=== PATIENT | male | born 1950 | race Caucasian/White ===

== ENCOUNTER 2016-07-15 09:31 | Inpatient (IN) | payer OTHER ==
[2016-05-19 11:36] VITALS: BMI 29.0
[2016-05-19 11:54] VITALS: BMI 29.0
--- NOTE | 2016-05-19 12:11 | PAT Medication Instructions ---
Service Date May 19, 2016. Current Home Medication List Amlodipine (Norvasc), 5 MG PO QAM Medication Instructions For Your Scheduled Surgery - Take the following medications the morning of surgery with a sip of water: Amlodipine (Norvasc), 5 MG PO QAM If you have any questions please call us at [phone] or [phone] ( Alexandra) or [phone]
[2016-05-19 12:41] LABS: BASO % 0.5 %; BASO ABS # 0.03 K/uL (0-0.2); COMPLETE YES; EOS % 2.2 %; HEMATOCRIT 47.2 % (42-52); IG% 0.2 %; LYMPH % 27.9 %; LYMPH ABS # 1.76 K/uL (1.2-3.4); MEAN CELL VOLUME 90.9 fL (80-100); MEAN CORPUSCULAR HEMOGLOBIN 31.4 pg (25-34); MEAN CORPUSCULAR HGB CONC 34.5 g/dl (32-36); MEAN PLATELET VOLUME 10.8 fL (7.4-10.4); MONO % 5.2 %; PLATELET COUNT 273 K/uL (130-400); RED BLOOD COUNT 5.19 M/uL (4.7-6.1); WHITE BLOOD COUNT 6.31 K/uL (4.8-10.8)
[2016-05-19 12:47] LABS: URINE APPEARANCE CLEAR (CLEAR); URINE BILIRUBIN NEG (NEG); URINE COLOR YELLOW; URINE NITRITE NEG (NEG); UROBILINOGEN NEG (NEG)
--- NOTE | 2016-05-19 12:50 | DIAGNOSTIC IMAGING REPORT ---
CHEST 2 VIEWS ROUTINE CLINICAL HISTORY: Preoperative chest COMPARISON STUDY: No previous studies for comparison. FINDINGS: The cardiac and mediastinal contours are normal. There is no evidence of focal pulmonary consolidation. There is no evidence of failure. No pleural effusions are visualized.[ A 9 mm rounded opacity at the right lung base, is felt to represent a nipple shadow. IMPRESSION: No active disease in the chest. Electronically signed by: Lawrence Pearce M.D. 05/19/2016 12:48 PM Dictated Date/Time: 05/19/2016 12:47 PM
[2016-05-19 12:54] LABS: MANUAL MICROSCOPIC REQUIRED? NO; REVIEW REQ? NO
[2016-05-19 13:09] LABS: BUN/CREATININE RATIO 12.2 (10-20); CALCIUM 9.2 mg/dl (8.5-10.1); CREATININE 1.1 mg/dl (0.60-1.40); POTASSIUM 3.5 mmol/L (3.5-5.1)
[2016-06-23 15:23] VITALS: BMI 29.0
[2016-07-15] VITALS (7 sets, daily range): BP systolic 131–172; BP diastolic 80–112; PULSE 71–89; TEMP 36.4–36.8; O2SAT 95–99; Ht 180.3 cm; Wt 96.9 kg
[~2016-07-15] VITALS: Ht 180.3 cm; Wt 96.9 kg
[~2016-07-15 09:31] MED LIST: AMLO-110 PO; CEFAZOLIN 2000 MG/60 ML D5W IV SCH; CeleBREX 200 MG CAP PO SCH; LACTATED RINGER'S 1000ML 1,000 ML IV SCH; OXYMETAZOLINE HCL 0.05% NA SPR 15 ML BTL SCH; PREGABALIN 75 MG CAP PO SCH
--- NOTE | 2016-07-15 12:19 | History and Physical ---
History & Physical Date Jul 15, 2016. Chief Complaint LBP and bilateral LE numbness History of Present Illness The patient is a 65 year old male with complaints of above who reports progressive worsening of symptoms. He has a lumbar laminectomy L3-S1 done in 2012 with partial initial improvement but had residual mild numbness in feet. He has noticed some longstanding slight L ankle weakness as well. His symptoms have deteriorated more recently and his back pain has precluded any of his usual activity or work. His quality of life was severely curtailed and he desires surgery. He was deemed low risk by cardiology for the procedure. Past Medical/Surgical History HTN High lipids lumbar surgery hernia repair tonsillectomy per neuropathy Additional History Hepatic Disease: No Endocrine Disorder: No Kidney Disease: No Hypertension: Yes Heart Disease: No Bleeding Tendencies: No Infectious Diseases: No Allergies Coded Allergies: No Known Allergies (Unverified , 07/15/16) Home Medications Scheduled Amlodipine (Norvasc), 5 MG PO QAM Physical Examination Skin: warm/dry, no rash Eyes: normal inspection, sclerae normal ENT: normal ENT inspection Head: normocephalic, atraumatic Neck: supple, trachea midline Respiratory/Chest: lungs clear, no respiratory distress Cardiovascular: regular rate, rhythm Back: normal inspection, + pertinent finding (midline scar) Extremities: normal inspection, normal range of motion Neurologic/Psych: no motor/sensory deficits (except L ankle DF weakness 3+/5, slight sensory disturbance to lt tch bila feet) Diagnosis recurrent lumbar stenosis/facet djd/DDD L3-S1 Plan of Treatment Revision laminectomy and instrumented PSF L3-S1
[2016-07-15] MEDS ORDERED: THROMBIN 5000 UNITS KIT ONE (12:22)
[2016-07-15] MEDS ORDERED: BACITRACIN 50000 UNIT VIAL ONE (12:22)
[2016-07-15] MEDS ORDERED: BUPIVACAINE/EPINEPHRINE 0.5% MPF 1:200,000 30 ML VIAL ONE (12:22)
[2016-07-15] MEDS ORDERED: THROMBIN FOR SOLN 20000 UNIT KIT ONE ×3 (12:22→13:25)
[2016-07-15] MEDS ORDERED: HEPARIN SOD (PORCINE) 1000 UNIT/ML 10 ML VIAL ONE (12:22)
[2016-07-15] MEDS ORDERED: FENTANYL CITRATE INJ 50 MCG/1 ML 2 ML VIAL ONE ×3 (12:25→14:22)
[2016-07-15] MEDS ORDERED: MIDAZOLAM HCL 1 MG/ML 2ML VIAL ONE (12:25)
[2016-07-15] MEDS ORDERED: HYDROmorphone INJ 2 MG/ML SYR/VIAL IV PRN (12:30)
[2016-07-15] MEDS ORDERED: ATROPINE SULFATE 0.1 MG/ML 5ML SYR IV PRN (12:30)
[2016-07-15] MEDS ORDERED: LABETALOL HCL IV 5 MG/ML 20ML IV PRN (12:30)
[2016-07-15] MEDS ORDERED: ONDANSETRON INJ 2 MG/ML 2 ML VIAL IV PRN ×2 (12:30→14:30)
[2016-07-15] MEDS ORDERED: HYDROmorphone INJ 2 MG/ML SYR/VIAL ONE ×2 (13:02→14:22)
[2016-07-15] MEDS ORDERED: FLOSEAL HEMOSTATIC MATRIX 10ML TOP ONE (14:19)
[2016-07-15] MEDS ORDERED: ONDANSETRON INJ 2 MG/ML 2 ML VIAL ONE (14:23)
[2016-07-15] MEDS ORDERED: PROPOFOL IV EMULSION 10 MG/ML 20 ML VIAL IV ONE (14:23)
[2016-07-15] MEDS ORDERED: GLYCOPYRROLATE INJ 0.2 MG/ML VIAL ONE (14:23)
[2016-07-15] MEDS ORDERED: DEXAMETHASONE SOD INJ 4 MG/ML VIAL ONE (14:23)
[2016-07-15] MEDS ORDERED: NEOSTIGMINE METHYLSULFATE 1 MG/ML 10ML VIAL ONE (14:23)
[2016-07-15] MEDS ORDERED: EpHEDrine SULFATE 50MG/5ML SYR ONE (14:23)
[2016-07-15] MEDS ORDERED: ROCURONIUM BROMIDE 10 MG/ML 5 ML VIAL ONE (14:23)
[2016-07-15] MEDS ORDERED: KETOROLAC TROMETHAMINE 30 MG/ML VIAL ONE (14:23)
[2016-07-15] MEDS ORDERED: LIDOCAINE HCL 2% 2 ML VIAL (20MG/ML) ONE (14:23)
[2016-07-15] MEDS ORDERED: SODIUM CHLORIDE 0.9% 1000ML 1,000 ML IV SCH (14:29)
--- NOTE | 2016-07-15 14:29 | [facility] Post Operative Brief Note ---
Immediate Operative Summary Operative Date Jul 15, 2016. Pre-Operative Diagnosis recurrent lumbar stenosis/facet degenerative joint disease/degenerative disc disease L3-S1, previous lumbar laminectomy L3-S1 Post-Operative Diagnosis same as pre-operative Procedure(s) Performed L3-L4 Revision Decompression; L3-S1 Posterior Lumbar Instrumented Fusion; use of Infuse, Autograft and Arteriocyte Surgeon Dr. Jose Almanza Solar Energy Sales Specialist Surgeon(s) Ricky Palm PA-C Estimated Blood Loss 150ml Findings dict Specimens none per surgeon
[2016-07-15] MEDS ORDERED: ALUMINUM/MAGNESIUM SUSP 30 ML UDC PO PRN (14:30)
[2016-07-15] MEDS ORDERED: LORAZEPAM 0.5 MG TAB PO PRN (14:30)
[2016-07-15] MEDS ORDERED: ACETAMINOPHEN IV 100 ML IV PRN (14:30)
[2016-07-15] MEDS ORDERED: PROMETHAZINE HCL INJ 12.5 MG in SODIUM CHLORIDE 0.9% 50ML 50 ML IV PRN (14:30)
[2016-07-15] MEDS ORDERED: MAGNESIUM HYDROXIDE SUSP 30 ML UDC PO PRN (14:30)
[2016-07-15] MEDS ORDERED: METOCLOPRAMIDE HCL INJ 5 MG/ML 2 ML VIAL IV PRN (14:30)
[2016-07-15] MEDS ORDERED: SOD PHOSPHATE/SOD BIPHOSPHATE ENEMA 132 ML BTL PR PRN (14:30)
[2016-07-15] MEDS ORDERED: FAMOTIDINE 20 MG TAB PO PRN (14:30)
[2016-07-15] MEDS ORDERED: BISACODYL 10 MG SUPP PR PRN (14:30)
[2016-07-15] MEDS ORDERED: MoRPHine SULFATE 1 MG/ML 50 ML PCA CASS IV PRN (14:30)
[2016-07-15] MEDS ORDERED: NALOXONE HCL 0.4 MG/1 ML VIAL/CARP IV PRN ×2 (14:30)
[2016-07-15] MEDS ORDERED: LORAZEPAM INJ 0.5 MG in SYRINGE 0 ML IV PRN (14:30)
--- NOTE | 2016-07-15 14:43 | DIAGNOSTIC IMAGING REPORT ---
INTRAOPERATIVE RADIOGRAPHS CLINICAL HISTORY: L3-S1 spinal fusion. Fluoroscopy time: 14 seconds. FINDINGS: 2 spot fluoroscopic views of the lumbar spine are presented. There are changes from laminectomy and posterior fusion identified from L3 -S1. Interpedicular screws are present at all levels, seen only only on the left at L4 and only on the right at L5. The orthopedic hardware appears intact. IMPRESSION: Intraoperative images from L3 -S1 spinal fusion as above. Electronically signed by: Wilbur Roa M.D. 07/15/2016 2:41 PM Dictated Date/Time: 07/15/2016 2:40 PM
[2016-07-15] MEDS ORDERED: MoRPHine SULFATE 1 MG/ML 50 ML PCA CASS ONE (14:49)
--- NOTE | 2016-07-15 15:16 | Anesthesiology Progress Note ---
Anesthesia Post Op Note Date & Time Jul 15, 2016 at 15:15 Vital Signs Vital Signs Past 12 Hours Date Time Temp Pulse Resp B/P Pulse Ox O2 Delivery O2 Flow Rate FiO2 07/15/16 15:11 80 16 07/15/16 15:11 80 16 99 07/15/16 15:10 137/92 07/15/16 15:06 83 19 07/15/16 15:06 84 19 97 07/15/16 15:05 132/89 07/15/16 15:01 80 12 07/15/16 15:01 80 12 98 07/15/16 15:00 138/98 07/15/16 14:56 74 16 07/15/16 14:56 73 16 100 07/15/16 14:55 139/93 07/15/16 14:53 85 16 07/15/16 14:53 86 16 100 07/15/16 14:50 136/99 07/15/16 14:48 87 13 99 07/15/16 14:48 88 13 07/15/16 14:45 168/104 07/15/16 14:43 103 15 07/15/16 14:43 102 15 99 07/15/16 14:40 146/104 07/15/16 14:38 93 149/94 98 07/15/16 14:38 93 07/15/16 14:38 36.9 95 16 149/94 96 Mask 10 07/15/16 10:14 95 Room Air 07/15/16 10:12 36.8 82 18 172/112 168/112 Notes Mental Status: alert / awake / arousable, participated in evaluation Pt Amnestic to Procedure: Yes Nausea / Vomiting: adequately controlled Pain: adequately controlled Airway Patency, RR, SpO2: stable & adequate BP & HR: stable & adequate Hydration State: stable & adequate Anesthetic Complications: no major complications apparent
[2016-07-15] MEDS: SODIUM CHLORIDE 0.9% 1000ML 1,000 ML IV SCH (18:06)
[2016-07-15] MEDS: DEXAMETHASONE INJ 6 MG in SYRINGE 0 ML IV SCH (18:07)
[2016-07-15] MEDS ORDERED: HYDROmorphone INJ 1 MG/ML SYR IV PRN (18:30)
[2016-07-15] MEDS: DOCUSATE SODIUM/SENNA 50/8.6MG TAB PO SCH (20:50)
[2016-07-15] MEDS: CEFAZOLIN IV 2,000 MG in DEXTROSE 5% 50ML 50 ML IV SCH (20:50)
[2016-07-16] MEDS: DEXAMETHASONE INJ 6 MG in SYRINGE 0 ML IV SCH ×2 (01:42→09:29)
[2016-07-16 03:31] VITALS: BP 141/90; PULSE 68; TEMP 36.4; O2SAT 96
[2016-07-16] MEDS: SODIUM CHLORIDE 0.9% 1000ML 1,000 ML IV SCH (03:35)
[2016-07-16] MEDS: CEFAZOLIN IV 2,000 MG in DEXTROSE 5% 50ML 50 ML IV SCH (05:33)
[2016-07-16] MEDS ORDERED: DC PCA SCH (06:00)
[2016-07-16] MEDS ORDERED: HYDROmorphone INJ 1 MG/ML SYR IV PRN (06:00)
[2016-07-16] MEDS ORDERED: NURSING DECISION MEDICATION ORDER SCH (06:00)
[2016-07-16] MEDS ORDERED: HYDROmorphone INJ 0.5 MG/0.5 ML SYR IV PRN (06:00)
[2016-07-16] MEDS ORDERED: OXYCODONE HCL IR 5 MG TAB (IMMEDIATE RELEASE) PO PRN (06:00)
[2016-07-16 06:07] LABS: COMPLETE YES; HEMATOCRIT 42.2 % (42-52); IG% 0.2 %; LYMPH % 6.4 %; MEAN CELL VOLUME 90.9 fL (80-100); MEAN CORPUSCULAR HEMOGLOBIN 31.3 pg (25-34); MEAN CORPUSCULAR HGB CONC 34.4 g/dl (32-36); MEAN PLATELET VOLUME 10.6 fL (7.4-10.4); MONO % 1.7 %; NEUT % 91.7 %; PLATELET COUNT 242 K/uL (130-400); RED BLOOD COUNT 4.64 M/uL (4.7-6.1); WHITE BLOOD COUNT 11.02 K/uL (4.8-10.8)
[2016-07-16 07:00] LABS: BUN/CREATININE RATIO 22.7 (10-20); CALCIUM 8.7 mg/dl (8.5-10.1); CREATININE 0.95 mg/dl (0.60-1.40); POTASSIUM 4.1 mmol/L (3.5-5.1)
[2016-07-16 07:35] VITALS: BP 139/95; PULSE 78; TEMP 36.6; O2SAT 97
--- NOTE | 2016-07-16 08:04 | Anesthesiology Progress Note ---
Anesthesia Post Op Note Date & Time Jul 16, 2016 at 08:03 Vital Signs Pain Intensity: 0.0 Vital Signs Past 12 Hours Date Time Temp Pulse Resp B/P Pulse Ox O2 Delivery O2 Flow Rate FiO2 07/16/16 07:35 36.6 78 16 139/95 97 Room Air 07/16/16 03:31 36.4 68 18 141/90 96 Room Air 07/15/16 23:40 36.4 75 18 144/92 96 Room Air Notes Mental Status: alert / awake / arousable, participated in evaluation Pt Amnestic to Procedure: Yes Nausea / Vomiting: adequately controlled Pain: adequately controlled Airway Patency, RR, SpO2: stable & adequate BP & HR: stable & adequate Hydration State: stable & adequate Anesthetic Complications: no major complications apparent
[2016-07-16] MEDS ORDERED: RXC5 PO (09:16)
--- NOTE | 2016-07-16 09:16 | Orthopedic Progress Note ---
Orthopedic Progress Note Date of Service Jul 16, 2016. Subjective Post OP Day: 1 Reports: feeling well, pain controlled w PO medications, Denies: SOB, calf pain , chest pain, complaints, light headedness, nausea / vomiting, using REFUND CLERK Objective calves soft nontender, N/V intact, dressing C/D/I, A&O x3, hemovac drainage Date Time Temp Pulse Resp B/P Pulse Ox O2 Delivery O2 Flow Rate FiO2 07/16/16 07:35 36.6 78 16 139/95 97 Room Air 07/16/16 03:31 36.4 68 18 141/90 96 Room Air 07/15/16 23:40 36.4 75 18 144/92 96 Room Air 07/15/16 19:30 Nasal Cannula 2.0 07/15/16 19:22 36.5 71 16 144/94 95 Room Air 07/15/16 17:47 36.5 89 16 153/91 98 Nasal Cannula 2.0 07/15/16 17:00 36.5 84 16 156/80 99 Nasal Cannula 4.0 07/15/16 15:45 36.4 82 16 131/87 99 Nasal Cannula 4.0 07/15/16 15:45 Nasal Cannula 4.0 07/15/16 15:45 Nasal Cannula 4.0 07/15/16 15:35 142/86 07/15/16 15:33 76 17 07/15/16 15:33 74 17 100 07/15/16 15:30 128/84 07/15/16 15:28 67 17 99 07/15/16 15:28 68 17 07/15/16 15:25 143/88 07/15/16 15:25 36.5 07/15/16 15:23 71 10 07/15/16 15:23 70 10 98 07/15/16 15:22 81 16 99 07/15/16 15:22 81 16 07/15/16 15:20 142/89 07/15/16 15:17 84 16 98 07/15/16 15:17 84 16 07/15/16 15:15 118/88 07/15/16 15:12 80 14 07/15/16 15:12 80 14 99 07/15/16 15:11 80 16 07/15/16 15:11 80 16 99 07/15/16 15:10 137/92 07/15/16 15:06 83 19 07/15/16 15:06 84 19 97 07/15/16 15:05 132/89 07/15/16 15:01 80 12 07/15/16 15:01 80 12 98 07/15/16 15:00 138/98 07/15/16 14:56 74 16 07/15/16 14:56 73 16 100 07/15/16 14:55 139/93 07/15/16 14:53 85 16 07/15/16 14:53 86 16 100 07/15/16 14:50 136/99 07/15/16 14:48 87 13 99 07/15/16 14:48 88 13 07/15/16 14:45 168/104 07/15/16 14:43 103 15 07/15/16 14:43 102 15 99 07/15/16 14:40 146/104 07/15/16 14:38 93 149/94 98 07/15/16 14:38 93 07/15/16 14:38 36.9 95 16 149/94 96 Mask 10 07/15/16 10:14 95 Room Air 07/15/16 10:12 36.8 82 18 172/112 168/112 Laboratory Results 24 Hours: Test 07/16/16 05:30 White Blood Count 11.02 K/uL Red Blood Count 4.64 M/uL Hemoglobin 14.5 g/dL Hematocrit 42.2 % Mean Corpuscular Volume 90.9 fL Mean Corpuscular Hemoglobin 31.3 pg Mean Corpuscular Hemoglobin Concent 34.4 g/dl Platelet Count 242 K/uL Mean Platelet Volume 10.6 fL Neutrophils (%) (Auto) 91.7 % Lymphocytes (%) (Auto) 6.4 % Monocytes (%) (Auto) 1.7 % Eosinophils (%) (Auto) 0.0 % Basophils (%) (Auto) 0.0 % Neutrophils # (Auto) 10.11 K/uL Lymphocytes # (Auto) 0.70 K/uL Monocytes # (Auto) 0.19 K/uL Eosinophils # (Auto) 0.00 K/uL Basophils # (Auto) 0.00 K/uL Assessment & Plan Assessment: doing well, pain controlled Plan: PT, SCDs, d/c tuesday Discharge Planning Discharge Planning: home Pain Management: Oxy IR DVT Prophylaxis: SCDs
--- NOTE | 2016-07-16 09:17 | Discharge Instructions ---
Discharge Instructions Date of Service Jul 16, 2016. Admission Reason for Admission: Lumbar Spinal Stenosis Discharge Discharge Diagnosis / Problem: same Discharge Goals Goal(s): Decrease discomfort Activity Recommendations Activity Limitations: per Instructions/Follow-up section . Instructions / Follow-Up Instructions / Follow-Up ACTIVITY RECOMMENDATIONS: SELF CARE INSTRUCTIONS AFTER THORACIC/LUMBAR FUSIONS 1. You may walk to your tolerance. It is good exercise for your legs and back. Expect some back and intermittent leg aches and pains. 2. You may perform "counter-top" level activities (make a sandwich, pepe with a project, etc.). 3. No bending or lifting of more than 10 pounds or back twisting of any nature (roll like a log when turning in bed). 4. You may ride in a car for 20-30 minutes at a time. No driving until after your first visit with your doctor. 5. Frequent changes of position and restricting sitting to 30 minutes at a time will help limit the amount of back spasms and stiffness you may experience. 6. You may discontinue the use of ambulatory aids (cane, crutches, etc.) once your strength and confidence allow. 7. You may gold miner blasting the shower and let water strike your incision when you arrive home at least once daily. Do not take a tub bath, sit in a hot tub or go into a swimming pool until after your first recheck in the office. SPECIAL CARE INSTRUCTIONS: VERY IMPORTANT TO READ AND REVIEW A. Your surgical incision has been closed with a cosmetic suture under the skin that will dissolve in about 6 weeks. In 14 days, you can use a pair of clean scissors and cut the suture that is left outside of the skin at the ends of your incision. 1. The small skin tapes can be removed 7 days after surgery if they have not fallen off by that point. 2. You may keep the wound open to air as much as possible to promote healing after post-op day number 5 unless told otherwise by your doctor. 3. If you think the wound looks like it is becoming infected (redness or worsening drainage) and/or you are experiencing fever, chill or worsening back pain and muscle spasms, contact the office so that we may evaluate you as soon as possible. B. Complications are uncommon, but please contact us if you have any signs or symptoms of: 1. wound infection (fever higher than 102.5 degrees F, redness, separation of wound, drainage, or increasing pain from the incision) 2. blood clots in legs (pain, swelling, redness and warmth in legs) 3. urinary tract infection (fever higher than 102.5 degrees F, burning upon urination or increased frequency of urination) 4. nerve problems (inability to walk on your toes or heels, numbness, loss of bowel or bladder control) 5. any other symptoms that concern you C. Please call the office at if you have any concerns or questions about your operation or recovery. D. No smoking! Smoking drastically decreases the chance of a solid fusion. E. Do not take any anti-inflammatory medications (Indocin, Advil, Motrin, Aspirin, Naprosyn, etc.) as these may inhibit the chance of a solid fusion. Tylenol is okay to take for pain. MANAGING PAIN AFTER SPINAL SURGERY 1. Narcotic medication is intended for short-term use and will be provided for surgical pain. Surgical pain usually lasts for a period of 4-6 weeks. Narcotic medication includes Percocet, Vicodin, Darvocet, Tylenol #3 or Lortab. 2. Longer-term pain is more appropriately treated with non-narcotic medication such as Tylenol ES. 3. Muscle spasm is not appropriately treated with narcotics. Muscle relaxers such as Soma, Flexeril or Skelaxin can be used along with Tylenol ES. 4. Remember that we all live with some "aches and pains". This is not unusual or uncommon after an injury or as we get older. a. Back pain is expected and may include muscle spasms for 4 to 6 weeks after surgery. The pain should gradually improve. If the pain worsens for no apparent reason, please contact the office. b. Intermittent leg pain may also be experienced and should not be concerned about unless it worsens for no apparent reason. If so, please contact the office. 5. We will provide appropriate medication within the normal guidelines of their prescribed use. We will also be very cautious and aware of potential abuse and extended duration of patients' medication needs. a. Pain medications are for your comfort and to assist with sleep and rest so that the tissue can heal. They are not provided in order to return to normal activity and should not be used through the day. To do so or worsening pain at night can result from ongoing tissue damage and development of tolerance to the prescribed medicine. 6. Please allow 2-3 days to process refills. Prescriptions will not be mailed but must be picked up at the office. FOLLOW UP VISIT: Keep your scheduled follow-up appointment. Any questions, please call the office at . Current Hospital Diet Patient's current hospital diet: Regular Diet Discharge Diet Recommended Diet: Regular Diet Procedures Procedures Performed: L3-L4 Revision Decompression; L3-S1 Posterior Lumbar Instrumented Fusion; use of Infuse, Autograft and Arteriocyte Pending Studies Studies pending at discharge: no Medical Emergencies . Who to Call and When: Medical Emergencies: If at any time you feel your situation is an emergency, please call 911 immediately. . Non-Emergent Contact Non-Emergency issues call your: Surgeon . "Provider Documentation" section prepared by Jose Almanza. . VTE Core Measure Inpt VTE Proph given/why not?: SCD's [place] Drug Monitoring Program Search Results: patient reviewed within database, no issues identified
[2016-07-16] MEDS: AMLODIPINE BESYLATE 5 MG TAB PO SCH (09:29)
[2016-07-16 11:26] VITALS: BP 140/91; PULSE 77; TEMP 36.7; O2SAT 96
[2016-07-16] MEDS ORDERED: NURSING VERBAL MED ORDER ONE (13:45)
[2016-07-16] MEDS ORDERED: COUGH DROP (SUGAR FREE) LOZ 24 LOZ/1 BOX PO PRN (14:00)
[2016-07-16 15:11] VITALS: BP 147/88; PULSE 76; TEMP 36.5; O2SAT 96
[2016-07-16] MEDS: DOCUSATE SODIUM/SENNA 50/8.6MG TAB PO SCH (21:05)
[2016-07-16 23:03] VITALS: BP 145/90; PULSE 69; TEMP 36.5; O2SAT 96
[2016-07-17] MEDS: POLYETHYLENE (MIRALAX) 17 GM PACK PO SCH ×2 (05:29→12:00)
[2016-07-17 07:07] VITALS: BP 156/103; PULSE 74; TEMP 36.5; O2SAT 95
[2016-07-17 08:59] VITALS: BP 147/90; PULSE 80
[2016-07-17] MEDS: AMLODIPINE BESYLATE 5 MG TAB PO SCH (09:00)
[2016-07-17 09:08] VITALS: BP 147/90; O2SAT 96
--- NOTE | 2016-07-17 11:35 | PROGRESS NOTE ---
DATE: 07/17/2016 DATE: 07/17/2016. SUBJECTIVE: Postop day 2. Back pain is controlled. Leg pain improved. Vital signs stable. T-max 36.5. MARLENY drained 60 mL. Vital signs stable. OBJECTIVE: On exam he has good strength to testing, appears comfortable. ASSESSMENT: Status post lumbar decompression and fusion. PLAN: At this time, will discharge home. Discharge orders and instructions can be found on the chart for review.
[2016-07-17 11:57] VITALS: BP 147/90; PULSE 80; TEMP 36.5; O2SAT 96
--- NOTE | 2016-07-20 14:15 | OPERATIVE REPORT ---
DATE OF OPERATION: 07/15/2016 PREOPERATIVE DIAGNOSES: 1. Previous lumbar laminectomy of L3 to the sacrum. 2. Lumbar degenerative scoliosis. 3. Lumbar degenerative disc disease. 4. Recurrent spinal stenosis L3-L4 and partially L4-L5 in foraminal location. POSTOPERATIVE DIAGNOSIS: Same. PROCEDURES: 1. Revision laminectomy L3-L4 with bilateral L3-L4 facetectomies. 2. Segmental pedicle screw instrumentation -- bilateral L3, L4, L5 and S1 with K2M [place] pedicle screws. 3. Posterior lateral fusion L3-S1 -- bilateral with Infuse BMP on a collagen sponge, tricalcium phosphate, local bone, bone putty, bone marrow aspirate. 4. Right iliac crest bone marrow aspiration stem cell concentration application bone graft. SURGEON: Dr. Almanza. TOBACCO SPRAYER: Ricky Palm PA-C. Please note he participated in all portions of the procedure and was critical for performance of procedure, participated in positioning, prepping, draping, retraction and wound closure. ANESTHESIA: General endotracheal anesthesia. COMPLICATIONS: None. ESTIMATED BLOOD LOSS: 150 mL. OPERATION AND FINDINGS: PROCEDURE: After identification of patient and operative level, he was brought to the OR where he underwent induction of general anesthesia. He was then positioned prone on Derick OR table. All bony prominences were well padded. Care was taken to avoid pressure on the periorbital area. Lumbosacral area was sterilely prepped and draped in usual fashion. Antibiotics were administered. Time-out was performed. Level was confirmed and skin incision was made using the previous scar from spinous process of L2 to the sacrum. I did wide exposure, placed Gelpi retractors and identified the laminectomy bed from L3 to the sacrum and confirmed level with fluoroscopy. I then did a revision decompression L3-L4 where there was some recurrent of arthrosis with some lateral recess stenosis. L4-L5 had simply foraminal stenosis and I felt that if I corrected the scoliosis on the table with hardware would address this without needing to do direct decompression given the extent of dural tube scar in this region. I then dissected the L3-L4 facets free of the epidural adhesions and used an osteotome to remove the remaining facets and completed decompression with Kerrisons bilaterally. Following this, I could pass the probe along the L3 and L4 nerve roots to both neural foramen and along the pedicles at L3-L4. I then proceeded to place pedicle screws bilaterally at L3, L4, L5 and S1 with K2M [place] pedicle screws. Screws had excellent bony purchase following insertion. I checked position, length and trajectory with fluoroscopy. Please note, due to what was an apparent auto fusion of L4-L5 I only placed 1 screw into L4 on the left and 1 screw into L5 on the left. Following instrumentation, I obtained bone marrow aspirate from the right iliac crest via separate stab incision with a Jamshidi needle concentrated with bone graft stem cell concentration system. I applied to bone graft wrecking crane engine operator. I then lowered the Guillermo frame to restore lordosis and applied prelordosed rods from L3 to the sacrum with final tightening of all end caps. I then placed a cross link which final tightened and irrigated with bacitracin solution. I decorticated the transverse process from L3 to the sacrum bilaterally with a high speed eliazar and then packed the lateral gutters with bone graft mixture consisting of Infuse BMP on a collagen sponge, tricalcium phosphate, morselized local bone and bone putty soaked in bone marrow aspirate. I obtained final x-rays, confirmed improvement in his scoliosis, although not complete correction and acceptable lordosis. I then closed in layered fashion over MARLENY drain. All sponge and needle counts were correct at the end of the case. I attest to the content of the Intraoperative Record and any orders documented therein. Any exceptio ns are noted below.
--- NOTE | 2016-08-09 16:54 | Discharge Summary ---
Orthopedic Discharge Summary Admission Date/Reason Jul 15, 2016 at 12:00 Lumbar Spinal Stenosis. Discharge Date/Disposition Jul 17, 2016 Home Diagnosis Principal Diagnosis: same Procedure(s) Performed lumbar revision decompression and fusion Medication Reconciliation New Medications: Oxycodone HCl (Oxycodone HCl) 5 Mg Tab 5-10 MG PO Q4H PRN for Moderate - severe pain, #100 TAB Continued Medications: Amlodipine (Norvasc) 5 Mg Tab 5 MG PO QAM, TAB Admission Physical Exam As per Admitting History & Physical. Hospital Course The patient was admitted for elective spinal surgery and underwent the procedure without complication. They were transferred to the floor in stable condition, they remained hemodynamically stable, had pain controlled on oral pain medication, ambulated with PT and were discharged home in stable condition when medically and functionally cleared. Discharge Instructions Please refer to the electronic Patient Visit Report (Discharge Instructions) for additional information.
== END 2016-07-17 14:30 | disposition home or self-care (01) | DRG 460 ==
LOC: ENRESERVTM → ENRESERVDT → C.ACU 09:31 → C.3E 12:00
PROVIDERS: ADMIT Orthopaedic Surgery Orthopaedic Surgery of the Spine; ATTEND Orthopaedic Surgery Orthopaedic Surgery of the Spine
PROC: 3E0U0GB Introduction of Recombinant Bone Morphogenetic Protein into Joints, Open Approach (ICD-10-PCS; principal; 2016-07-15 11:30)
PROC: 07DR3ZZ Extraction of Iliac Bone Marrow, Percutaneous Approach (ICD-10-PCS; principal; 2016-07-15 11:30)
PROC: 0SG1071 Fusion of 2 or more Lumbar Vertebral Joints with Autologous Tissue Substitute, Posterior Approach, Posterior Column, Open Approach (ICD-10-PCS; principal; 2016-07-15 11:30)
PROC: 0SG3071 Fusion of Lumbosacral Joint with Autologous Tissue Substitute, Posterior Approach, Posterior Column, Open Approach (ICD-10-PCS; principal; 2016-07-15 11:30)
DX: M48.06 Spinal stenosis, lumbar region (principal); M51.16 Intervertebral disc disorders with radiculopathy, lumbar region; M41.86 Other forms of scoliosis, lumbar region; R20.0 Anesthesia of skin; M47.816 Spondylosis without myelopathy or radiculopathy, lumbar region; M47.817 Spondylosis without myelopathy or radiculopathy, lumbosacral region; I10 Essential (primary) hypertension; Z87.891 Personal history of nicotine dependence; Z79.899 Other long term (current) drug therapy